=== PATIENT | female | born 1990 | race Caucasian/White ===

== ENCOUNTER 2017-01-27 17:37 | Emergency (ER) | payer SELFPAY ==
[~2017-01-27] VITALS: Ht 167.6 cm; Wt 47.7 kg
[~2017-01-27 17:37] MED LIST: AURALGAN14.8 ML BOTH EARS; CIPRO HC OTIC S10 ML BOTH EARS
[2017-01-27] MEDS ORDERED: PERCOCET 5/31 TABLET PO (19:23)
[2017-01-27] MEDS ORDERED: KEFLEX500 MG PO (19:23)
[2017-01-27] MEDS ORDERED: BACTRIM,SEPT1 TABLET PO (19:23)
[2017-01-27 19:59] VITALS: BP 145/80
== END 2017-01-27 19:57 | disposition home or self-care (01) ==
LOC: EME 17:37
DX: L02.11 Cutaneous abscess of neck (principal); F17.200 Nicotine dependence, unspecified, uncomplicated
CPT/HCPCS: 87070; 87075; 87077; 87147; 87186; 87205; 99281; 99284

== ENCOUNTER 2017-09-29 23:53 | Emergency (ER) | payer OTHER ==
[~2017-09-29] VITALS: Ht 167.6 cm; Wt 53.2 kg
[~2017-09-29 23:53] MED LIST changes: +BACTRIM,SEPT1 TABLET PO; +KEFLEX500 MG PO; +PERCOCET 5/31 TABLET PO
[2017-09-30] MEDS ORDERED: PEN-VEE K,VEET500 MG PO (00:43)
[2017-09-30] MEDS ORDERED: BACTROBAN OINTM22 GM TP (00:43)
[2017-09-30] MEDS ORDERED: MOTRIN800 MG PO (00:43)
[2017-09-30] MEDS ORDERED: BACTRIM,SEPT1 TABLET PO (00:43)
[2017-09-30] MEDS ORDERED: ULTRACET1 TABLET PO (00:43)
[2017-09-30 01:12] VITALS: BP 114/81
== END 2017-09-30 01:14 | disposition home or self-care (01) ==
LOC: EME 23:53
DX: K04.7 Periapical abscess without sinus (principal); K02.9 Dental caries, unspecified; L08.9 Local infection of the skin and subcutaneous tissue, unspecified; F17.200 Nicotine dependence, unspecified, uncomplicated
CPT/HCPCS: 99281; 99283

== ENCOUNTER 2017-11-01 20:51 | Emergency (ER) | payer OTHER ==
[~2017-11-01] VITALS: Ht 167.6 cm; Wt 52.3 kg
[~2017-11-01 20:51] MED LIST changes: +BACTROBAN OINTM22 GM TP; +MOTRIN800 MG PO; +PEN-VEE K,VEET500 MG PO; +ULTRACET1 TABLET PO
[2017-11-01] MEDS ORDERED: AUGMENTIN875 MG PO (23:47)
[2017-11-01] MEDS ORDERED: NORCO 7.5/321 TABLET PO (23:47)
[2017-11-01] MEDS ORDERED: NAPROSYN500 MG PO (23:47)
[2017-11-02 00:17] VITALS: BP 119/86
== END 2017-11-02 00:21 | disposition home or self-care (01) ==
LOC: EXP 20:51 → EME 20:51 → EXP 11-02 00:21
DX: K04.7 Periapical abscess without sinus (principal); K02.9 Dental caries, unspecified; F17.200 Nicotine dependence, unspecified, uncomplicated
CPT/HCPCS: 99281; 99285; J1100; J1885

== ENCOUNTER 2017-11-19 16:02 | Emergency (ER) | payer OTHER ==
[~2017-11-19] VITALS: Ht 170.2 cm; Wt 51.9 kg
[~2017-11-19 16:02] MED LIST changes: +AUGMENTIN875 MG PO; +NAPROSYN500 MG PO; +NORCO 7.5/321 TABLET PO
[2017-11-19 16:23] VITALS: BP 108/61
[2017-11-19] MEDS ORDERED: NORCO 5/3251 TABLET PO (17:59)
[2017-11-19] MEDS ORDERED: PEN-VEE K,VEET500 MG PO (17:59)
== END 2017-11-19 18:16 | disposition home or self-care (01) ==
LOC: EME 16:02
DX: K02.9 Dental caries, unspecified (principal); K04.7 Periapical abscess without sinus; K03.81 Cracked tooth; F17.200 Nicotine dependence, unspecified, uncomplicated
CPT/HCPCS: 99281; 99284